=== PATIENT | female | born 2000 | race American Indian/Alaskan Native ===

== ENCOUNTER 2021-05-02 20:40 | Emergency (ER) | payer SELFPAY ==
[2021-05-02] MEDS ORDERED: dexAMETHasone 20 MG/5 ML VIAL IM ONE (23:22)
[2021-05-02] MEDS ORDERED: AMOXICILLIN/K CLAV 875/125MG TAB PO ONE (23:23)
[2021-05-02] MEDS ORDERED: IBUPROFEN 800 MG TAB PO ONE (23:23)
--- NOTE | 2021-05-02 23:43 | Emergency Department Report ---
ED General Adult HPI - General Chief complaint: Headache Stated complaint: HEADACHE X4DAYS GEN WEAKNESS LUMP IN BREAST Time Seen by Provider: 05/02/21 23:21 Source: patient Mode of arrival: Ambulatory Limitations: No Limitations - History of Present Illness Initial comments: Patient is a 20-year-old female who presents for sinus headache and sore throat x3 days jennifer tmax noted at home , temp is 102/4 oral in triag today, pt states pain with swallowing, There is no ear pain , no stridor or wheezing, pt does endorse recurrent sinusitis. Symptoms are exacerbated by swallowing and movement, symptoms are relieve by nothing tried. Symptoms are exacerbating headache , which in usual location and intensity as headaches of past. - Related Data Previous Rx's Medication Instructions Recorded Last Taken Type Amoxicillin/Potassium Clav 1 each PO BID #20 tablet 05/02/21 Unknown Rx [Augmentin 875-125 Tablet] Dexamethasone [Decadron] 6 mg PO BID #15 tablet 05/02/21 Unknown Rx Ibuprofen [Motrin 800 MG tab] 800 mg PO Q8HR PRN #30 tablet 05/02/21 Unknown Rx Allergies Allergy/AdvReac Type Severity Reaction Status Date / Time No Known Allergies Allergy Verified 05/02/21 22:41 ED Review of Systems ROS: Stated complaint: HEADACHE X4DAYS GEN WEAKNESS LUMP IN BREAST Other details as noted in HPI Constitutional: denies: chills, fever Eyes: denies: eye pain, eye discharge, vision change ENT: throat pain, congestion, other (sinus pain and pressure ). denies: ear pain Respiratory: denies: cough, shortness of breath, stridor, wheezing Cardiovascular: as per HPI. denies: chest pain Endocrine: no symptoms reported Gastrointestinal: denies: abdominal pain, nausea, vomiting, diarrhea Genitourinary: denies: urgency, dysuria, discharge Musculoskeletal: denies: back pain, joint swelling, arthralgia Skin: denies: rash, lesions Neurological: denies: headache, weakness, paresthesias Psychiatric: denies: anxiety, depression ED Past Medical Hx - Past Medical History Previous Medical History?: No - Medications Home Medications: Home Medications Medication Instructions Recorded Confirmed Last Taken Type Amoxicillin/Potassium Clav 1 each PO BID #20 tablet 05/02/21 Unknown Rx [Augmentin 875-125 Tablet] Dexamethasone [Decadron] 6 mg PO BID #15 tablet 05/02/21 Unknown Rx Ibuprofen [Motrin 800 MG tab] 800 mg PO Q8HR PRN #30 tablet 05/02/21 Unknown Rx ED Physical Exam - General Limitations: No Limitations General appearance: alert, in no apparent distress - Head Head exam: Present: atraumatic, normocephalic - Eye Eye exam: Present: normal appearance, PERRL, EOMI. Absent: conjunctival injection, nystagmus Pupils: Present: normal accommodation - ENT ENT exam: Present: mucous membranes moist, TM's normal bilaterally, normal external ear exam - Expanded ENT Exam Expanded Ear exam: Present: normal external inspection Throat exam: Positive: tonsillar erythema, tonsillomegaly, tonsillar exudate, other (uvula midline rise and fall, no stridor or wheezing ). Negative: R peritonsillar mass, L peritonsillar mass - Neck Neck exam: Present: normal inspection, full ROM, lymphadenopathy. Absent: tenderness, thyromegaly - Respiratory Respiratory exam: Present: normal lung sounds bilaterally. Absent: respiratory distress, wheezes, stridor, chest wall tenderness - Cardiovascular Cardiovascular Exam: Present: regular rate, normal rhythm, normal heart sounds. Absent: systolic murmur, diastolic murmur, rubs, gallop - GI/Abdominal GI/Abdominal exam: Present: soft, normal bowel sounds. Absent: distended, tenderness, guarding, rebound, rigid, bruit, hernia - Rectal Rectal exam: Present: deferred - Extremities Exam Extremities exam: Present: normal inspection, full ROM. Absent: tenderness, pedal edema, joint swelling - Back Exam Back exam: Present: normal inspection, full ROM. Absent: CVA tenderness (R), CVA tenderness (L) - Neurological Exam Neurological exam: Present: alert, oriented X3, CN II-XII intact, normal gait - Psychiatric Psychiatric exam: Present: normal affect, normal mood - Skin Skin exam: Present: warm, dry, intact, normal color. Absent: rash ED Course Vital Signs 05/02/21 22:46 Temperature 102.4 F H ED Medical Decision Making - Medical Decision Making This is a sinus headache with sinusitis plan short burst steroids, antibiotic, NSAID as needed for pain or fever. There is no productive cough wheezing or stridor patient does not have a history of asthma, patient did denies further diagnostics at this time states she is ready to go home.. Plan as above. Patient will follow up with primary care doctor in 2 days for follow-up patient will return to ED should symptoms worsen. Critical Care Time: No Critical care attestation.: If time is entered above; I have spent that time in minutes in the direct care of this critically ill patient, excluding procedure time. ED Disposition Clinical Impression: Sinus headache, Sinusitis chronic, frontal Disposition: HOME / SELF CARE / HOMELESS Is pt being admited?: No Does the pt Need Aspirin: No Condition: Stable Instructions: Sinusitis, Adult, [id number], Form - Headache Record Additional Instructions: Take medications as prescribed. Follow-up with your doctor in 2-3 days, hydrate as directed, quarntine at home. Prescriptions: Amoxicillin/Potassium Clav [Augmentin 875-125 Tablet] 1 each PO BID #20 tablet Dexamethasone [Decadron] 6 mg PO BID #15 tablet Ibuprofen [Motrin 800 MG tab] 800 mg PO Q8HR PRN #30 tablet PRN Reason: pain fever Referrals: CYN THAO MD [Referring] - 3-5 Days Forms: Work/School Release Form(ED) Time of Disposition: 23:57
== END 2021-05-03 00:10 | disposition home or self-care (01) ==
LOC: ED 20:40
DX: J32.1 Chronic frontal sinusitis (principal); Z79.899 Other long term (current) drug therapy
CPT/HCPCS: 96372; 99282; J1100